=== PATIENT | female | born 1960 | race Caucasian/White ===

== ENCOUNTER 2016-12-03 20:26 | Emergency (ER) | payer MEDICARE ==
[2016-12-03] MEDS ORDERED: DILAUDID 1 MG/ML AMP ONE (22:25)
[2016-12-03] MEDS ORDERED: SODIUM CHLORIDE 0.9% 500 ML IV ONE (22:25)
[2016-12-03] MEDS ORDERED: ONDANSETRON 4 MG VIAL ONE (22:25)
[2016-12-04] MEDS ORDERED: LEVOFLOXACIN 500 MG TAB ONE (00:58)
[2016-12-04] MEDS ORDERED: METRONIDAZOLE 500 MG TAB ONE (00:59)
== END 2016-12-04 09:20 | disposition home or self-care (01) ==
LOC: ER 20:26
DX: A09 Infectious gastroenteritis and colitis, unspecified (principal); E11.22 Type 2 diabetes mellitus with diabetic chronic kidney disease; I12.9 Hypertensive chronic kidney disease with stage 1 through stage 4 chronic kidney disease, or unspecified chronic kidney disease; N18.9 Chronic kidney disease, unspecified; J44.9 Chronic obstructive pulmonary disease, unspecified; Z79.899 Other long term (current) drug therapy; Z87.891 Personal history of nicotine dependence
CPT/HCPCS: 36415; 74176; 80053; 81001; 83690; 85025; 87088; 96361; 96374; 96375; 99284; J1170; J2405; J7040